=== PATIENT | male | born 1940 | race Caucasian/White ===

== ENCOUNTER 2018-08-20 12:04 | Outpatient (CLI) | payer MEDICARE, OTHER ==
--- NOTE | 2018-08-20 15:10 | ULT ---
ULTRASOUND THYROID: 08/20/18 HISTORY: Goiter NOS, E04.9 and thyroid (cystic) nodule NOS, E04.1. COMPARISON: None. FINDINGS: ISTHMUS: 0.3 cm AP. RIGHT LOBE: 4.5 x 1.7 x 1.3 cm. LEFT LOBE: 4.8 x 1.2 x 1.4 cm. At the mid pole of the right lobe, there is a tiny 0.1 x 0.1 x 0.2 cm benign cyst. Slight inferior to that also at the medial aspect of the right mid pole, there is a tiny nodule measu ring 0.3 x 0.2 x 0.3 cm. COMPOSITION:Solid: 2 points. ECHOGENICITY:Hypoechoic: 2 points. SHAPE:Wider than tall: 0 points. MARGIN:Smooth: 0 points. ECHOGENIC FOCI:None: 0 points. TOTAL POINTS: 4 TIRADS category 4: Moderately suspicious. Recommendation for category 4 lesions: FNA if greater than or equal to 1.5 cm. Follow if greater than or equal to 1 cm (at 1, 2, 3 and 5 years). This particular nodule meets neither of the above criteria, and therefore no followup and no fine nee dle aspiration is recommended. No thyroid nodules in the isthmus or left lobe. Otherwise, the thyroid parenchyma has smooth, homogeneously normal echogenicity. IMPRESSION: 1. Tiny hypoechoic nodule and tiny cyst at the right lobe of the thyroid gland. 2. No fine needle aspiration biopsy and no followup recommended. POS: [facility]
== END 2018-08-20 12:05 | disposition home or self-care (01) ==
LOC: BICULT 12:04
PROVIDERS: ATTEND Otolaryngology Plastic Surgery within the Head & Neck
DX: E04.1 Nontoxic single thyroid nodule (principal); E04.9 Nontoxic goiter, unspecified
CPT/HCPCS: 76536